=== PATIENT | female | born 1995 | race Caucasian/White ===

== ENCOUNTER 2020-06-30 15:28 | Emergency (ER) | payer OTHER, SELFPAY ==
[2020-06-30 15:32] VITALS: BP 143/92; PULSE 97; RESP 18; TEMP 37.1; O2SAT 100
[2020-06-30 16:04] LABS: UR Morphine/Opiate cutoff 300 Negative (Negative); Ur Creatinine Normal (Normal); Ur Specific Gravity Normal (Normal); Urine Amphetamines Negative (Negative); Urine Barbiturates Negative (Negative); Urine Benzodiazepines Negative (Negative); Urine Cocaine Negative (Negative); Urine MDMA Negative (Negative); Urine Methadone Negative (Negative); Urine Methamphetamines Negative (Negative); Urine Oxycodone Negative (Negative); Urine Phencyclidine Negative (Negative); Urine Tetrahydrocannabinol Negative (Negative); Urine Tricyclic Antidepressant Negative (Negative); Urine pH Normal (Normal)
[2020-06-30 16:05] LABS: Add Manual Diff / Slide Review NO; Basophils Absolute Auto 0 /uL (0-100); Basophils Percent Auto 0.3 % (0-2); Eosinophils Absolute Auto 200 /uL (0-450); Eosinophils Percent Auto 2.1 % (2-4); Hematocrit 37.5 % (36-46); Lymphocytes Absolute Auto 1700 /uL (1100-4500); Lymphocytes Percent Auto 16.5 % (25-40); Mean Corpuscular HGB Conc 32.1 % (30-36); Mean Corpuscular Hemoglobin 29.1 PG (26-34); Mean Corpuscular Volume 90.6 fL (80-100); Monocytes Absolute Auto 400 /uL (0-900); Monocytes Percent Auto 3.7 % (3-14); Neutrophils Absolute Auto 7900 /uL (1500-7000); Neutrophils Percent Auto 77.4 % (50-75); Platelet Count 259 X10^3/uL (150-400); Red Blood Cell Count 4.14 X10^6/uL (4.0-5.2); Red Cell Distribution Width 12.5 % (11.6-14.8); White Blood Cell Count 10.1 X10^3/uL (4.5-11.0)
[2020-06-30 16:18] LABS: Acetaminophen < 10 ug/mL (10-30); Alanine Aminotransferase 16 IU/L (<35); Albumin 4.2 g/dL (3.5-5.0); Albumin Globulin Ratio 1.3 (1.0-2.8); Alkaline Phosphatase 56 U/L (38-126); Aspartate Aminotransferase 24 IU/L (14-36); BUN Creatinine Ratio 15.4 (6-22); Bilirubin Total 0.2 mg/dL (0.2-1.3); Blood Urea Nitrogen 8 mg/dL (7-17); Calcium 9.1 mg/dL (8.4-10.2); Carbon Dioxide 25 mmol/L (22-32); Chloride 105 mmol/L (98-107); Estimated Glomerular Filt Rate > 60.0 mL/min (>60); Ethanol (ETOH) < 10 mg/dL; Globulin 3.2 g/dL (1.7-4.1); Glucose 101 mg/dL (70-100); HEMOLYSIS < 15 (0-50); Potassium 3.9 mmol/L (3.4-5.1); Salicylate < 1.0 mg/dL (<20); Sodium 137 mmol/L (137-145); Total Protein 7.4 g/dL (6.3-8.2)
--- NOTE | 2020-06-30 16:31 | ED_ITS ---
HPI - Psych <Jai Sigala DO - Last Filed: 07/01/20 17:55> General Chief Complaint: Psychiatric Symptoms Stated Complaint: Bi Polar Episode Time Seen by Provider: 06/30/20 15:39 Source: patient Mode of arrival: Ambulatory Limitations: no limitations History of Present Illness HPI Narrative: 25F smoker with a history of bipolar disorder presents with a chief complaint of active suicidal ideation and a plan. Prior to COVID the patient controlled her bipolar with weekly therapy sessions, this has stopped since the pandemic. She has always refused medications but has managed without them. She denies any specific or known trigger but states that she has become increasingly suicidal and her plan is to cut herself. She wants help and recognizes the knee. She denies any alcohol or street drugs. She lives with 2 roommates and has no local family. MD complaint: suicidal ideation and feels depressed Onset (ago): day(s) Duration: constant History of same: Yes Relieving factors: none Exacerbating factors: none Associated psychiatric symptoms: depression and suicidal ideation Associated symptoms: denies other symptoms Treatments prior to arrival: none If self harm: admits thoughts of self harm and has plan Related Data Home Medications Medication Instructions Recorded Confirmed alprazolam [Xanax XR] 0.5 mg PO DAILY PRN 06/30/20 06/30/20 Allergies Allergy/AdvReac Type Severity Reaction Status Date / Time Penicillins Allergy Verified 06/30/20 15:36 Review of Systems <Jai Sigala DO - Last Filed: 07/01/20 17:55> Constitutional Constitutional: Denies chills, Denies fatigue, Denies fever(s), Denies frequent falls, Denies lethargy and Denies weakness Eyes Eyes: Denies change in vision, Denies eye discharge, Denies irritation and Denies loss of vision ENT Ears, Nose, Mouth, and Throat: Denies change in voice, Denies dizziness, Denies neck pain, Denies sore throat and Denies throat swelling Cardiovascular Cardiovascular: Denies chest pain, Denies irregular heart rhythm, Denies lightheadedness, Denies palpitations, Denies dyspnea, Denies dyspnea on exertion and Denies orthopnea Respiratory Respiratory: Denies cough, Denies dyspnea, Denies dyspnea on exertion and Denies wheezing Gastrointestinal Gastrointestinal: Denies abdominal pain, Denies change in bowel habits, Denies diarrhea, Denies nausea and Denies vomiting Musculoskeletal Musculoskeletal: Denies neck pain and Denies numbness Integumentary/Breasts Skin/Breast: Denies pruritus, Denies erythema, Denies rash and Denies wounds Neurologic Neurologic: Denies behavioral changes, Denies confusion, Denies dizziness, Denies frequent falls, Denies loss of vision, Denies numbness and Denies weakness Psychiatric Psychiatric: Denies anxiety, Denies behavioral changes, Denies confusion, Reports depression, Denies homicidal ideation and Reports suicidal ideation Endocrine Endocrine: Denies fatigue, Denies flushing and Denies palpitations Hematologic/Lymphatic Hematologic/Lymphatic: Denies easy bruising Allergic/Immunologic Allergic/Immunologic: Denies urticaria, Denies throat swelling and Denies wh eezing Patient History <Jai Sigala DO - Last Filed: 07/01/20 17:55> Social History Smoking Status: Current some day smoker Smoking Status: Current some day smoker Exam <Jai Sigala DO - Last Filed: 07/01/20 17:55> Narrative Exam Narrative: GENERAL: [25] year old patient appears stated age. Well- nourished, well-developed patient, in mild distress. HEAD: Atraumatic. Normocephalic. EYES: Pupils equal round and reactive. Extraocular motions intact. No scleral icterus. No injection or drainage. ENT: Nose without bleeding, purulent drainage. Throat without erythema, tonsillar hypertrophy or exudate. Airway patent. NECK: Trachea midline. Non tender CARDIOVASCULAR: Regular rate and rhythm without murmurs, gallops, or rubs. RESPIRATORY: Clear to auscultation. Breath sounds equal bilaterally. No wheezes, rales, or rhonchi. GASTROINTESTINAL: Abdomen soft, non-tender, nondistended. EXTREMITIES: No edema or joint tenderness. BACK: Nontender without deformity or crepitance. No flank tenderness. NEURO: AOx3. SKIN: No rash or erythema of visible areas Initial Vital Signs Initial Vital Signs: Vital Signs Temperature 98.7 F 06/30/20 15:32 Pulse Rate 97 H 06/30/20 15:32 Respiratory Rate 18 06/30/20 15:32 Blood Pressure 143/92 H 06/30/20 15:32 Pulse Oximetry 100 06/30/20 15:32 <Kevin Capps, DO - Last Filed: 06/30/20 21:20> Initial Vital Signs Initial Vital Signs: Vital Signs Temperature 98.7 F 06/30/20 15:32 Pulse Rate 97 H 06/30/20 15:32 Respiratory Rate 18 06/30/20 15:32 Blood Pressure 143/92 H 06/30/20 15:32 Pulse Oximetry 100 06/30/20 15:32 Course <Jai Sigala, DO - Last Filed: 07/01/20 17:55> Course Course Narrative: Patient is suicidal with a plan. It is my opinion that she is appropriate for voluntary admission. Orders Ordered: ED Orders 06/30/20 15:41 [place] [facility] [place] Operator Stat 06/30/20 15:49 Acetaminophen Stat Complete Blood Count AUTO DIFF Stat Comprehensive Metabolic Panel Stat Ethanol (ETOH) Stat Free T4, Direct Thyroxine Stat Salicylate Stat Thyroid Stimulating Hormone Stat 06/30/20 15:51 Urine Drug Screen, Rapid Stat 06/30/20 17:35 COVID19 Stat Vital Signs Vital signs: Vital Signs - 8 hr 06/30/20 15:32 06/30/20 19:34 Temperature 98.7 F Pulse Rate 97 H 90 Respiratory Rate 18 16 Blood Pressure 143/92 H 115/65 Pulse Oximetry 100 99 <Kevin Capps, DO - Last Filed: 06/30/20 21:20> Orders Ordered: ED Orders 06/30/20 15:41 Consult to [facility] [employer] Machine Operator Stat 06/30/20 15:49 Acetaminophen Stat Complete Blood Count AUTO DIFF Stat Comprehensive Metabolic Panel Stat Ethanol (ETOH) Stat Free T4, Direct Thyroxine Stat Salicylate Stat Thyroid Stimulating Hormone Stat 06/30/20 15:51 Urine Drug Screen, Rapid Stat 06/30/20 17:35 COVID19 Stat Vital Signs Vital signs: Vital Signs - 8 hr 06/30/20 15:32 06/30/20 19:34 Temperature 98.7 F Pulse Rate 97 H 90 Respiratory Rate 18 16 Blood Pressure 143/92 H 115/65 Pulse Oximetry 100 99 MDM - Psych <Jai Sigala, DO - Last Filed: 07/01/20 17:55> Lab Data Result diagrams: 06/30/20 15:49 06/30/20 15:49 Labs: Lab Results 06/30/20 06/30/20 06/30/20 Range/Units 15:49 15:49 15:49 WBC 10.1 (4.5-11.0) X10^3/uL RBC 4.14 (4.0-5.2) X10^6/uL Hgb 12.0 (12.0-16.0) g/dL Hct 37.5 (36-46) % MCV 90.6 (80-100) fL MCH 29.1 (26-34) PG MCHC 32.1 (30-36) % RDW 12.5 (11.6-14.8) % Plt Count 259 (150-400) X10^3/uL Neut % (Auto) 77.4 H (50-75) % Lymph % (Auto) 16.5 L (25-40) % [place] % (Auto) 3.7 (3-14) % Eos % (Auto) 2.1 (2-4) % Baso % (Auto) 0.3 (0-2) % Neut # (Auto) 7900 H (5909-5805) /uL Lymph # (Auto) 1700 (9364-8128) /uL [place] # (Auto) 400 (0-900) /uL Eos # (Auto) 200 (0-450) /uL Baso # (Auto) 0 (0-100) /uL Sodium 137 (137-145) mmol/L Potassium 3.9 (3.4-5.1) mmol/L Chloride 105 (98-107) mmol/L Carbon Dioxide 25 (22-32) mmol/L BUN 8 (7-17) mg/dL Creatinine 0.52 (0.52-1.04) mg/dL Estimated GFR > 60.0 (>60) mL/min BUN/Creatinine Ratio 15.4 (6-22) Glucose 101 H (70-100) mg/dL Calcium 9.1 (8.4-10.2) mg/dL Total Bilirubin 0.2 (0.2-1.3) mg/dL AST 24 (14-36) IU/L ALT 16 (<35) IU/L Alkaline Phosphatase 56 (38-126) U/L Total Protein 7.4 (6.3-8.2) g/dL Albumin 4.2 (3.5-5.0) g/dL Globulin 3.2 (1.7-4.1) g/dL Albumin/Globulin Ratio 1.3 (1.0-2.8) TSH 1.25 (0.47-4.68) uIU/mL Free T4 0.97 (0.78-2.19) ng/dL Salicylates < 1.0 (<20) mg/dL U Opiates 300ng/mL cut (Negative) Ur Oxycodone Screen (Negative) Urine Methadone Screen (Negative) Acetaminophen < 10 L (10-30) ug/mL Ur Barbiturates Screen (Negative) U Tricyclic Antidepress (Negative) Ur Phencyclidine Scrn (Negative) Ur Amphetamines Screen (Negative) U Methamphetamines Scrn (Negative) Ur MDMA Scrn (Ecstasy) (Negative) U Benzodiazepines Scrn (Negative) Urine Cocaine Screen (Negative) U Marijuana (THC) Screen (Negative) Ethyl Alcohol < 10 ( - 10) mg/dL SARS-CoV-2 (PCR) (Negative) 06/30/20 06/30/20 Range/Units 15:51 17:35 WBC (4.5-11.0) X10^3/uL RBC (4.0-5.2) X10^6/uL Hgb (12.0-16.0) g/dL Hct (36-46) % MCV (80-100) fL MCH (26-34) PG MCHC (30-36) % RDW (11.6-14.8) % Plt Count (150-400) X10^3/uL Neut % (Auto) (50-75) % Lymph % (Auto) (25-40) % [place] % (Auto) (3-14) % Eos % (Auto) (2-4) % Baso % (Auto) (0-2) % Neut # (Auto) (0136-5689) /uL Lymph # (Auto) (6040-6601) /uL [place] # (Auto) (0-900) /uL Eos # (Auto) (0-450) /uL Baso # (Auto) (0-100) /uL Sodium (137-145) mmol/L Potassium (3.4-5.1) mmol/L Chloride (98-107) mmol/L Carbon Dioxide (22-32) mmol/L BUN (7-17) mg/dL Creatinine (0.52-1.04) mg/dL Estimated GFR (>60) mL/min BUN/Creatinine Ratio (6-22) Glucose (70-100) mg/dL Calcium (8.4-10.2) mg/dL Total Bilirubin (0.2-1.3) mg/dL AST (14-36) IU/L ALT (<35) IU/L Alkaline Phosphatase (38-126) U/L Total Protein (6.3-8.2) g/dL Albumin (3.5-5.0) g/dL Globulin (1.7-4.1) g/dL Albumin/Globulin Ratio (1.0-2.8) TSH (0.47-4.68) uIU/mL Free T4 (0.78-2.19) ng/dL Salicylates (<20) mg/dL U Opiates 300ng/mL cut Negative (Negative) Ur Oxycodone Screen Negative (Negative) Urine Methadone Screen Negative (Negative) Acetaminophen (10-30) ug/mL Ur Barbiturates Screen Negative (Negative) U Tricyclic Antidepress Negative (Negative) Ur Phencyclidine Scrn Negative (Negative) Ur Amphetamines Screen Negative (Negative) U Methamphetamines Scrn Negative (Negative) Ur MDMA Scrn (Ecstasy) Negative (Negative) U Benzodiazepines Scrn Negative (Negative) Urine Cocaine Screen Negative (Negative) U Marijuana (THC) Screen Negative (Negative) Ethyl Alcohol ( - 10) mg/dL SARS-CoV-2 (PCR) Negative (Negative) Point of Care Testing Test Results Negative Urine Dip Bedside Urine Glucose Negative Bedside Urine Bilirubin - Negative Bedside Urine Ketone - Negative Urine Specific [place] 1.015 Bedside Urine Occult Blood - Negative Bedside Urine pH 6.0 Bedside Urine Protein - Negative Bedside Urine Urobilinogen - Negative Bedside Urine Nitrite - Negative Bedside Urine Leukocytes - Negative Esterase <Kevin Capps, DO - Last Filed: 06/30/20 21:20> Lab Data Labs: Lab Results 06/30/20 06/30/20 06/30/20 Range/Units 15:49 15:49 15:49 WBC 10.1 (4.5-11.0) X10^3/uL RBC 4.14 (4.0-5.2) X10^6/uL Hgb 12.0 (12.0-16.0) g/dL Hct 37.5 (36-46) % MCV 90.6 (80-100) fL MCH 29.1 (26-34) PG MCHC 32.1 (30-36) % RDW 12.5 (11.6-14.8) % Plt Count 259 (150-400) X10^3/uL Neut % (Auto) 77.4 H (50-75) % Lymph % (Auto) 16.5 L (25-40) % [place] % (Auto) 3.7 (3-14) % Eos % (Auto) 2.1 (2-4) % Baso % (Auto) 0.3 (0-2) % Neut # (Auto) 7900 H (5097-9536) /uL Lymph # (Auto) 1700 (5549-0259) /uL [place] # (Auto) 400 (0-900) /uL Eos # (Auto) 200 (0-450) /uL Baso # (Auto) 0 (0-100) /uL Sodium 137 (137-145) mmol/L Potassium 3.9 (3.4-5.1) mmol/L Chloride 105 (98-107) mmol/L Carbon Dioxide 25 (22-32) mmol/L BUN 8 (7-17) mg/dL Creatinine 0.52 (0.52-1.04) mg/dL Estimated GFR > 60.0 (>60) mL/min BUN/Creatinine Ratio 15.4 (6-22) Glucose 101 H (70-100) mg/dL Calcium 9.1 (8.4-10.2) mg/dL Total Bilirubin 0.2 (0.2-1.3) mg/dL AST 24 (14-36) IU/L ALT 16 (<35) IU/L Alkaline Phosphatase 56 (38-126) U/L Total Protein 7.4 (6.3-8.2) g/dL Albumin 4.2 (3.5-5.0) g/dL Globulin 3.2 (1.7-4.1) g/dL Albumin/Globulin Ratio 1.3 (1.0-2.8) TSH 1.25 (0.47-4.68) uIU/mL Free T4 0.97 (0.78-2.19) ng/dL Salicylates < 1.0 (<20) mg/dL U Opiates 300ng/mL cut (Negative) Ur Oxycodone Screen (Negative) Urine Methadone Screen (Negative) Acetaminophen < 10 L (10-30) ug/mL Ur Barbiturates Screen (Negative) U Tricyclic Antidepress (Negative) Ur Phencyclidine Scrn (Negative) Ur Amphetamines Screen (Negative) U Methamphetamines Scrn (Negative) Ur MDMA Scrn (Ecstasy) (Negative) U Benzodiazepines Scrn (Negative) Urine Cocaine Screen (Negative) U Marijuana (THC) Screen (Negative) Ethyl Alcohol < 10 ( - 10) mg/dL SARS-CoV-2 (PCR) (Negative) 06/30/20 06/30/20 Range/Units 15:51 17:35 WBC (4.5-11.0) X10^3/uL RBC (4.0-5.2) X10^6/uL Hgb (12.0-16.0) g/dL Hct (36-46) % MCV (80-100) fL MCH (26-34) PG MCHC (30-36) % RDW (11.6-14.8) % Plt Count (150-400) X10^3/uL Neut % (Auto) (50-75) % Lymph % (Auto) (25-40) % [place] % (Auto) (3-14) % Eos % (Auto) (2-4) % Baso % (Auto) (0-2) % Neut # (Auto) (3206-4460) /uL Lymph # (Auto) (6855-1359) /uL [place] # (Auto) (0-900) /uL Eos # (Auto) (0-450) /uL Baso # (Auto) (0-100) /uL Sodium (137-145) mmol/L Potassium (3.4-5.1) mmol/L Chloride (98-107) mmol/L Carbon Dioxide (22-32) mmol/L BUN (7-17) mg/dL Creatinine (0.52-1.04) mg/dL Estimated GFR (>60) mL/min BUN/Creatinine Ratio (6-22) Glucose (70-100) mg/dL Calcium (8.4-10.2) mg/dL Total Bilirubin (0.2-1.3) mg/dL AST (14-36) IU/L ALT (<35) IU/L Alkaline Phosphatase (38-126) U/L Total Protein (6.3-8.2) g/dL Albumin (3.5-5.0) g/dL Globulin (1.7-4.1) g/dL Albumin/Globulin Ratio (1.0-2.8) TSH (0.47-4.68) uIU/mL Free T4 (0.78-2.19) ng/dL Salicylates (<20) mg/dL U Opiates 300ng/mL cut Negative (Negative) Ur Oxycodone Screen Negative (Negative) Urine Methadone Screen Negative (Negative) Acetaminophen (10-30) ug/mL Ur Barbiturates Screen Negative (Negative) U Tricyclic Antidepress Negative (Negative) Ur Phencyclidine Scrn Negative (Negative) Ur Amphetamines Screen Negative (Negative) U Methamphetamines Scrn Negative (Negative) Ur MDMA Scrn (Ecstasy) Negative (Negative) U Benzodiazepines Scrn Negative (Negative) Urine Cocaine Screen Negative (Negative) U Marijuana (THC) Screen Negative (Negative) Ethyl Alcohol ( - 10) mg/dL SARS-CoV-2 (PCR) Negative (Negative) Point of Care Testing Test Results Negative Urine Dip Bedside Urine Glucose Negative Bedside Urine Bilirubin - Negative Bedside Urine Ketone - Negative Urine Specific [place] 1.015 Bedside Urine Occult Blood - Negative Bedside Urine pH 6.0 Bedside Urine Protein - Negative Bedside Urine Urobilinogen - Negative Bedside Urine Nitrite - Negative Bedside Urine Leukocytes - Negative Esterase MDM Narrative Medical decision making narrative: Dr capps: Received turned over. I did review the patient's history and physical labs however did not have any physical contact with the patient. She was accepted just after discharge to a psychiatric facility. Patient was stable during the time here prior to transfer. She was transferred without issue. Discharge Plan Departure Patient Disposition: Xfer Psychiatric Hosp Clinical Impression: Suicidal ideation Bipolar disorder Qualifiers: Current bipolar episode type: depressed Current episode severity: unspecified
[2020-06-30 16:54] LABS: Free T4, Direct Thyroxine 0.97 ng/dL (0.78-2.19)
[2020-06-30 17:08] LABS: Thyroid Stimulating Hormone 1.25 uIU/mL (0.47-4.68)
--- NOTE | 2020-06-30 17:36 | CM.SWNOTE ---
STRUCTURED CABLING TECHNICIAN Assessment STRUCTURED CABLING TECHNICIAN - Tax Form Preparer Assessment STRUCTURED CABLING TECHNICIAN - Tax Form Preparer Assessment Start: 06/30/20 17:16 Freq: Status: Active Protocol: Document 06/30/20 17:16 PAULINA (Rec: 06/30/20 17:35 PAULINA [id number]) STRUCTURED CABLING TECHNICIAN/Tax Form Preparer Assessment Time Spent with Patient Start date 06/30/20 Visit Start Time 16:20 End date 06/30/20 Visit End Time 17:15 Total time Care Management spent on 55 patient visit-in minutes Mental Health Screening Include Onset, Duration, Intensity Presenting Problem Patient presents ED with mixed jennifer and SI with plan. Patient reports she has been experiencing current episode of jennifer with depressive symptoms for roughly 1 week and endorses increasing thoughts of suicide, self harm , and want to be done with it all. Patient states that she feel really close to hurting or killing herself, and endorses not feeling safe with her thoughts of suicide at this time. Patient explains she currently is experiencing racing thoughts, somatic symptoms, feeling out of control of myself and feeling like the world is out of control and I try to control it, but I can't . Precipitating Event(s) Patient discontinued weekly counseling 1 year prior. Patient enrolled in school roughly 1 year prior. Patient was diagnosed with bipolar in 2017 and managed without the use of medication until this time. Patient began working with a medical team regarding food sensitivities in November,, and has not been provided with a clear diagnosis or plan . Patient reports she feels she has been experiencing a significant escalation in her feelings of depression and suicide ideation since this time. Patient Strengths Patient is self aware and open about her current experience. Current Behavioral Health Provider(s) Patient currently sees a [facility], Provider, Ph. # counselor roughly 1x/mo Psych. Hx Mental Health and Chemical Patient has previous dx of Dependency PTSD, anxiety, depression, bipolar, and panic attacks. Patient reports that she used to engage in self harm/cutting when she was a teenager. Patient reports no current ETOH or substance abuse concerns. Family Hx of Behavioral Abuse None reported. Psychiatric Hospitalizations (date(s)/ None. location) Psychosocial information & Support Patient is a 25 y/o female who Systems attends school and works. Patient states she lives two roommates and that one of her coworkers indicated concern regarding her mental health. Patient's does have a boyfriend who remains in waiting room at patient request during assessment. School/Work Patient attends school and works. Legal Concerns Legal Matters - Outstanding Issues None. Mental Status Orientation (Person/Place/Time) Oriented x3 Stated Mood I've been crying since 1[pm] today. Affect (Congruent with Mood?) slightly dysthymic, normal range, congruent with mood. Thought Content - Specify/Describe No hallucinations, obsessions, Obsessions, Delusions, Hallucinations or delusions observed or reported. Thought Processes (Yxddsdb-Rhnnqkrh-Bpdf Logical-goal directed Scbjppet-Jwcazgcu-Zjxdsvikcy- Kuwenrkfbznscw-Fxxhyxb-Nbnhxakuygml- Thought Blocking) Speech (Gzcrtx-Rwpz-Xynepdi-Rapid-Soft- Normal Loud-Pressured) Motor (Kxtavq-Uldljisob-Tveg-Other) Patient was shaking some during assessment and did express that she was feeling some anxiety. Insight (Kvhz-Jesf-Dqka/Limited) Good Judgement (Cjvh-Bwkm-Mgyg/Limited) Good Impulse Control (Adequate-Impaired) Adequate in assessment Memory (Lfizukehl-Cewnhz-Ytbtlh, Intact for interview, not Impaired-Intact) formally assessed Concentration (Intact-Impaired) Intact Attention (Intact-Impaired) Intact Behavior (Appropriate-Inappropriate) Appropriate Risk Assessment Suicidal Ideation (Plan) Yes Homicidal Ideation (Plan) No Comment Patient denies HI. Patient endorses SI with plan by cutting and has consistent thought of suicide during her day I'll be driving next to the train tracks and think 'I should just turn into the train'. Patient states she has feelings of not wanting to be alive anymore. Intervention Intervention STRUCTURED CABLING TECHNICIAN meets with patient. Patient provides overview of current episode of jennifer, past diagnosis of jennifer/previous treatment. Patient states she tried to avoid medication for bipolar before, but feels she is unable to remain safe and stable at this time. Patient states she is interested in inpatient treatment to initiate medication and because she does not currently feel safe due to her mental health. At this time, it is the opinion of this STRUCTURED CABLING TECHNICIAN that patient is appropriate for voluntary inpatient behavioral health treatment for bipolar and SI. STRUCTURED CABLING TECHNICIAN explains process of inpatient tx to patient and patient agreeable to voluntary treatment. STRUCTURED CABLING TECHNICIAN reviews the above with Dr. Sigala, who indicates agreement with plan for inpatient. Plan RA Plan STRUCTURED CABLING TECHNICIAN will seek voluntary inpatient bed for patient. BOB Hassan
[2020-06-30 17:53] LABS: COVID19 -Nasal RAPID Negative (Negative)
--- NOTE | 2020-06-30 18:58 | CM.SWNOTE ---
CONCRETE CRUSHER LOADER OPERATOR note Following assessment, CONCRETE CRUSHER LOADER OPERATOR called [facility] seeking placement for patient. [facility] intake states they have open bed, requests clinicals, and later calls CONCRETE CRUSHER LOADER OPERATOR back with acceptance. Details of acceptance are placed in comments section of EMR and listed below: Accepted at [facility]. Accepting Provider. ONDINA Allen. [id number]: [phone]. Intake contact Lesley. Check in time: 2200. CONCRETE CRUSHER LOADER OPERATOR informs MUKUL Cantor, STEPHANIA Sutton, and ED providers Dr. Capps and Dr. Sigala. MUKUL Cantor to arrange transport. Patient remains agreeable to plan. Plan: Patient to transfer to [facility] for inpatient behavioral health hospitalization. BOB Hassan
[2020-06-30 19:34] VITALS: BP 115/65; PULSE 90; RESP 16; O2SAT 99
== END 2020-06-30 20:45 ==
PROVIDERS: Emergency Medicine; Emergency Provider Emergency Medicine
DX: R45.851 Suicidal ideations (principal); F31.9 Bipolar disorder, unspecified; Z20.822 Contact with and (suspected) exposure to COVID-19
CPT/HCPCS: 36415; 80053; 80305; 80320; 80329; 81003; 81025; 84439; 84443; 85025; 87635; 99284; C9803; G0480